=== PATIENT | female | born 1965 | race Caucasian/White ===

== ENCOUNTER → 2019-05-05 14:04 | Outpatient (CLI) | payer OTHER, SELFPAY ==
--- NOTE | 2019-05-05 14:08 | RAD_ITS ---
STUDY: X-RAY - LUMBAR SPINE REASON FOR EXAM: Female, 53 years old. Back pain TECHNIQUE: 5 view(s) of the lumbar spine were obtained. COMPARISON: None FINDINGS: Normal lumbar lordosis. There is no substantial scoliosis. There is a normal alignment of the vertebrae. There is multilevel endplate spondylosis of the lumbar vertebrae. There is multi-level degenerative disc disease with multi-level disc space narrowing. There is no demonstrated fracture. There is no demonstrated spondylolysis of the pars interarticulares. The soft tissue structures are unremarkable. RAD/L/S Spine Min 4 Views IMPRESSION: Degenerative changes of the spine, as detailed above. Electronically Signed: Rito Cardenas MD at 18:50 EDT Tel [phone], Service support ,
== END ==
PROVIDERS: Family Provider Family Medicine; PCP Family Medicine; Referring Provider Family Medicine; Visit Provider Family Medicine
DX: M47.896 Other spondylosis, lumbar region (principal); M51.36 Other intervertebral disc degeneration, lumbar region; M48.061 Spinal stenosis, lumbar region without neurogenic claudication
CPT/HCPCS: 72110

== ENCOUNTER → 2019-06-11 08:11 | Outpatient (CLI) | payer OTHER, SELFPAY ==
--- NOTE | 2019-06-11 08:14 | RAD_ITS ---
STUDY: X-RAY - ESOPHAGUS (BARIUM SWALLOW) WITH FLUOROSCOPY REASON FOR EXAM: Female, 53 years old. Dysphagia for solids. TECHNIQUE: 17 view(s) of the esophagus were obtained following swallowing of barium. FLUOROSCOPY TIME (if supplied): (0:29) minutes/seconds COMPARISON: None. FINDINGS: There is no demonstrated esophageal foreign body. There is no demonstrated stricture or mucosal abnormality. Normal gastroesophageal junction, without a demonstrated hiatal hernia. The patient ingested a 12 mm tablet of barium without any difficulty. Normal visualized aortic arch and descending thoracic aorta. Normal visualized pulmonary parenchyma. Normal visualized osseous structures of the thorax. RAD/Esophagus Only IMPRESSION: Normal plain film x-ray examination (barium swallow) of the esophagus. Electronically Signed: Hussain Cole, at 10:40 EDT , Service support ,
== END ==
PROVIDERS: Family Provider Family Medicine; PCP Family Medicine; Referring Provider Internal Medicine Gastroenterology; Visit Provider Internal Medicine Gastroenterology
DX: R13.10 Dysphagia, unspecified (principal)
CPT/HCPCS: 74220

== ENCOUNTER 2019-06-21 23:01 | Emergency (ER) | payer OTHER, SELFPAY ==
[2019-06-21 23:02] VITALS: BP 152/101; PULSE 95; RESP 15; TEMP 36.7; O2SAT 97; BMI 25.5
--- NOTE | 2019-06-21 23:13 | CT_ITS ---
HISTORY:RT EYE BLURRINESS AND HEADACHE,ELEVATED BP TODAY,PT TAKES NO MEDS FOR BP RT EYE BLURRINESS AND HEADACHE,ELEVATED BP TODAY,PT TAKES NO MEDS FOR BP TECHNIQUE: Multiple axial images were obtained of the brain without intravenous contrast. A radiation dose optimization technique was used for this scan. IV Contrast dosage and agent: None. COMPARISON: January 13, 2014 FINDINGS: # of images incl. paperwork: 241 INFARCT: None HEMORRHAGE: None PARENCHYMAL ATTENUATION:Normal for age MASS: None MIDLINE SHIFT: None BASAL CISTERNS: Patent VENTRICLES: Normal in size and configuration for age PARANASAL SINUSES:Clear MASTOID AIR CELLS: Clear ORBITS:No acute pathology CALVARIUM: No acute pathology OTHER TISSUES: No acute pathology ASPECTS Score for Acute Strokes: 10 CT/Brain/Head without Contrast IMPRESSION: No acute intracranial pathology. If symptoms persist consider mri for further evaluation if clinically indicated. Individualized dose optimization techniques were used for this CT. at 2352 Reported and signed by: Ute Caldwell DO Electronically Signed: Ute Caldwell DO at 23:51 EDT Tel , Service support ,
--- NOTE | 2019-06-21 23:15 | ED.VIS.GEN ---
History of Present Illness Chief Complaint: Hypertension Informant: Patient Onset: Days Context: Gradual Onset Timing: Continuous Current Severity: Moderate Maximum Severity: Moderate Narrative: The patient presents to the emergency department with right eye pain. Patient was contacts. She states she took her contacts out on . She that she begin to notice some pain in her eye. Over the past 2 days, she is had some blurry vision in the. She also describes a mild headache. She states that she was taking her blood pressure was elevated. She is not on any medication for high blood pressure. She denies fever. She denies chills or sweats. She denies any definitive trauma to the eye. She is otherwise been in her normal state of health. Prior similar symptoms: No Recent Illness/Hospitalization: No Past Medical History - Allergies and Home Meds Allergies/Adverse Reactions: Allergies latex Allergy (Verified 06/21/19 23:07) Rash Primary Care Physician: Colin Wang MD [STAFF PHYSICIAN] - (Call Sunday) Prior records reviewed: Yes Past Medical History: - Surgical History: no surgical history Smoking Status: Never smoker Review of Systems General: Denies: Chills, Fever, Sweats Eyes: Reports: Visual changes - right. Denies: Visual changes - bilaterally, Diplopia ENT: Denies: Rhinorrhea, Sore throat Cardiovascular: Denies: Chest pain, Palpitations Respiratory: Denies: Dyspnea, Cough, Dyspnea on exertion Gastrointestinal: Denies: Abdominal pain, Nausea, Vomiting, Diarrhea, Melena, Hematochezia Genitourinary: Denies: Dysuria, Hematuria, Frequency Musculoskeletal: Denies: Back pain, Extremity Pain Skin: Denies: Rash, Wounds Neurological: Denies: Headache, Weakness, Numbness Physical Exam Vital Signs/Narrative: Vital Signs Temp Pulse Resp BP Pulse Ox 06/21/19 23:02 98.0 F 95 15 152/101 H 97 Inital Vital Signs reviewed: Yes General: Well nourished, Well developed, No Acute Distress Head: Normocephalic, Atraumatic Eyes: Perrl, EOMI ENT: Moist mucous membranes, No rhinorrhea Neck: Supple, Nontender Cardiovascular: Regular rate, Regular rhythm, No murmurs Respiratory: No distress, CTA bilaterally, Chest nontender Abdomen: Soft, Nontender, Nondistended, Normal bowel sounds Back: Nontender, Normal Inspection Extremities: Nontender, No edema Skin: Normal color, No rash Neurological: Alert, Oriented x3, Cranial nerves II-XII grossly intact, Normal Strength, Normal Sensation Psychological: Normal affect, Normal Mood Diagnostic/Tx/Re-eval - Medical Decision Making The patient symptoms do seem most consistent with corneal injury. She is a contact lens wearer. She does have a visible area at approximately 2 o'clock position. Tetracaine and fluorescein were instilled into the right eye. Slit-lamp examination was performed. The patient is a 3 mm corneal ulceration at approximately the 2 o'clock position at the edge of the iris. There is no Jomar sign. The anterior chambers deep and quiet. There is no significant flare. I discussed the patient with Dr. Wang, on-call for ophthalmology for close follow-up. Agree with plan for Pseudomonas coverage with eyedrops. Patient will be seen in the office. Impression 1. 3 mm right eye corneal ulceration ED Disposition - Plan for ED Patient: Instructions: Corneal Ulcer Prescriptions: Hydrocodone Bitart/Apap 5-325 [[place] 5MG-325MG] 1 tab PO Q4H PRN PRN 2 Days #10 tab PRN Reason: Pain Prescription Printed Moxifloxacin Ophthalmic [Vigamox Ophth] 3 ml OP Q1H #1 tube Prescription Printed Referrals: Colin Wang MD [STAFF PHYSICIAN] - (Call Sunday)
[2019-06-21] MEDS: Tetracaine 0.5% Ophthalmic Bottle 1 DRP RIGHT EYE (23:20)
[2019-06-22] MEDS: Tobramycin Sulf 0.3% 5ML OPTH.BTL 2 DRP RIGHT EYE (00:04)
[2019-06-22] MEDS: Fluorescein 1 MG STRIP 1 STRIP RIGHT EYE (00:04)
[2019-06-22] MEDS: HYDROcodone Bitartrate/Apap 5/325 Tablet PO (00:04)
[2019-06-22 00:06] VITALS: RESP 14
== END 2019-06-22 00:07 | disposition home or self-care (01) ==
LOC: ED 23:17
PROVIDERS: Emergency Provider Emergency Medicine; Family Provider Family Medicine; PCP Family Medicine
DX: H16.001 Unspecified corneal ulcer, right eye (principal)
CPT/HCPCS: 70450; 99282

== ENCOUNTER → 2019-06-23 11:14 | Outpatient (CLI) | payer OTHER, SELFPAY ==
[2019-06-21 23:02] VITALS: BMI 25.5
[2019-06-23 14:23] LABS: ALB/GLOB Ratio 1.2 RATIO (0.9-2.4); AST(SGOT) 15 U/L (15-37); Alanine Aminotransfer ALT/SGPT 28 U/L (13-56); Albumin, Serum 4.5 g/dL (3.2-5.0); Alkaline Phosphatase 65 U/L (45-117); Anion Gap 8 (5-15); BUN 18 mg/dL (7-18); BUN/Creat Ratio 25.7 RATIO (10-20); Calcium,Total 9.3 mg/dL (8.5-10.1); Chloride 103 mmol/L (98-107); Cholesterol 250 mg/dL (200); EST Glomerular Filtration Rate 94 mL/min (>60); Est Glom Filt Rate - Afr Amer 113 mL/min (>60); Globulin 3.8 g/dL (2.2-4.2); Glucose 87 mg/dL (74-106); High Density Lipoprotein 78 mg/dL; Potassium 4.7 mmol/L (3.5-5.1); Protein, Total 8.3 g/dL (6.4-8.2); Sodium Level 140 mmol/L (136-145); Thyroid Stim Hormone (TSH) 1.67 uIU/mL (0.358-3.74); Triglycerides 82 mg/dL; Very Low Density Lipoprotein 16 mg/dL (5-40)
== END ==
PROVIDERS: Family Provider Family Medicine; PCP Family Medicine; Visit Provider Family Medicine
DX: I10 Essential (primary) hypertension (principal); R68.89 Other general symptoms and signs
CPT/HCPCS: 36415; 80053; 80061; 84443

== ENCOUNTER 2019-07-11 08:30 | Outpatient (RCR) | payer OTHER, SELFPAY ==
--- NOTE | 2019-06-23 10:38 | HP.PTEVAL ---
Patient's Visit Information LOUISE RIOS is a 53 year old F referred to Physical Therapy by Ab Mendosa MD with a diagnosis of . Date of Evaluation: 06/23/19 Physical Therapist: Raymundo Downs PT, Cert MDT, OCS - Visit Plan Frequency: 2x /Week Duration: 4 Weeks - Subjective Findings: This 53 female presents to physical therapy with lumbar pain with radiation left leg. Patient has had leg pain sinece 1985. Pateint has had PT in past. Symptoms worse over several months. Patient pain located left L-S region buttuck -hamstrings to knee. Patient has pins/needles in foot. Aggravating factors bending,lifting,sitting lay on back ,riding a motorcycle . Allevaiting factors avoid postions. Coughing/sneezing -. Bowel/bladder -. Patient able to sleep at night. Patient had accident many years landing on tailbone. Patient pain affects ADLS and job demands/housework tasks. Patient had x--rays DDD. Patient affects QOL .Pain at worse 8/10 worse in back leg. SOCIAL: with 5 kids. VOCATION: [employer] - Pain Left Back Pain Intensity (Out of 10): 5 Pain Intensity Range: 4, 10 Left Lower Extremity Pain Intensity (Out of 10): 0 Pain Intensity Range: 10 - Objective POSTURE: mild foward posture. GAIT: reciprocal pattern. NEURO: denies parathesia/tingling ,except pins /needles in foot reflexes L3-4,L4-5,L5-S1. SYMMTRIES: align. LUMBAR ROM:flexion min loss,extension mod with pain ,side glides min loss. MMT: quads/hams 4/5,hip flexion 4/5,ankle 4/5 - Special Tests L/S Slump test left side: Negative L/S Slump test right side: Negative L/S Left Straight Leg Raise: Negative L/S Right Straight Leg Raise: Negative Lumbar Standing: Flexion - Mechanical Response: No effect Lumbar Standing: Flexion - Symptoms During Testing: No effect Lumbar Standing: Flexion - Symptoms After Testing: No effect Lumbar Standing: Extension - Mechanical Response: No effect Lumbar Standing: Extension - Symptoms During Testing: Increases Lumbar Standing: Extension - Symptoms After Testing: Worse Lumbar Standing: Right Side Glides - Mechanical Response: No effect Lumbar Standing: Right Side [place] - Symptoms During Testing: No effect Lumbar Standing: Right Side [place] - Symptoms After Testing: No effect Lumbar Standing: Left Side [place] - Mechanical Response: No effect Lumbar Standing: Left Side [place] - Symptoms During Testing: No effect Lumbar Standing: Left Side [place] - Symptoms After Testing: No effect Lumbar Lying: Flexion - Mechanical Response: No effect Lumbar Lying: Flexion - Symptoms During Testing: Abolishes Lumbar Lying: Flexion - Symptoms After Testing: Worse Lumbar Lying: Extension - Mechanical Response: No effect Lumbar Lying: Extension - Symptoms During Testing: Increases Lumbar Lying: Extension - Symptoms After Testing: Worse - Goals Goal 1:: Indepensdant with HEP. Goal Time Frame: 2-4 Weeks Goal 2:: Improve posture for ADLS'/Body mecahanics. Goal Time Frame: 2-4 Weeks - Rehabilitation Potential Physical Therapy Diagnosis: This 53 y/o feamle presents with left L-S PAIN along with radicular symptoms left leg. worse with extension ,lay supine or no test movements decrease pain,along with poor lumbar ROM thus benifit from skilled PT Rehabilitation Potential: Good - Anticipated Interventions Patient/Client Instruction: Educate patient on: Condition, Plan of Care For the Purpose of:: To decrease pain, To increase ROM, To improve muscle performance and motor function Thank you for the opportunity to evaluate your patient. For Medicare and Medicare HMO plans, please review the plan of care and approve it. It will need to be FAXED BACK to us at [phone] for Medicare purposes. For Medicare only, by signing this I certify the plan of care. Please let me know if there are questions or concerns regarding this plan of care. Physician Signature: Date:
--- NOTE | 2019-06-23 13:44 | HP.PTEVAL_ITS ---
Patient's Visit Information LOUISE RIOS is a 53 year old F referred to Physical Therapy by Ab Mendosa MD with a diagnosis of . Date of Evaluation: 06/23/19 Physical Therapist: Raymundo Downs PT, Cert MDT, OCS - Visit Plan Frequency: 2x /Week Duration: 4 Weeks - Subjective Findings: This 53 female presents to physical therapy with lumbar pain with radiation left leg. Patient has had leg pain sinece 1985. Pateint has had PT in past. Symptoms worse over several months. Patient pain located left L-S region buttuck -hamstrings to knee. Patient has pins/needles in foot. Aggravating factors bending,lifting,sitting lay on back ,riding a motorcycle . Allevaiting factors avoid postions. Coughing/sneezing -. Bowel/bladder -. Patient able to sleep at night. Patient had accident many years landing on tailbone. Patient pain affects ADLS and job demands/housework tasks. Patient had x--rays DDD. Patient affects QOL .Pain at worse 8/10 worse in back leg. SOCIAL: with 5 kids. VOCATION: [employer] - Pain Left Back Pain Intensity (Out of 10): 5 Pain Intensity Range: 4, 10 Left Lower Extremity Pain Intensity (Out of 10): 0 Pain Intensity Range: 10 - Objective POSTURE: mild foward posture. GAIT: reciprocal pattern. NEURO: denies parathesia/tingling ,except pins /needles in foot reflexes L3-4,L4-5,L5-S1. SYMMTRIES: align. LUMBAR ROM:flexion min loss,extension mod with pain ,side glides min loss. MMT: quads/hams 4/5,hip flexion 4/5,ankle 4/5 - Special Tests L/S Slump test left side: Negative L/S Slump test right side: Negative L/S Left Straight Leg Raise: Negative L/S Right Straight Leg Raise: Negative Lumbar Standing: Flexion - Mechanical Response: No effect Lumbar Standing: Flexion - Symptoms During Testing: No effect Lumbar Standing: Flexion - Symptoms After Testing: No effect Lumbar Standing: Extension - Mechanical Response: No effect Lumbar Standing: Extension - Symptoms During Testing: Increases Lumbar Standing: Extension - Symptoms After Testing: Worse Lumbar Standing: Right Side Glides - Mechanical Response: No effect Lumbar Standing: Right Side [place] - Symptoms During Testing: No effect Lumbar Standing: Right Side [place] - Symptoms After Testing: No effect Lumbar Standing: Left Side [place] - Mechanical Response: No effect Lumbar Standing: Left Side [place] - Symptoms During Testing: No effect Lumbar Standing: Left Side [place] - Symptoms After Testing: No effect Lumbar Lying: Flexion - Mechanical Response: No effect Lumbar Lying: Flexion - Symptoms During Testing: Abolishes Lumbar Lying: Flexion - Symptoms After Testing: Worse Lumbar Lying: Extension - Mechanical Response: No effect Lumbar Lying: Extension - Symptoms During Testing: Increases Lumbar Lying: Extension - Symptoms After Testing: Worse - Goals Goal 1:: Indepensdant with HEP. Goal Time Frame: 2-4 Weeks Goal 2:: Improve posture for ADLS'/Body mecahanics. Goal Time Frame: 2-4 Weeks Goal 3:: Patient to decrease pain by 50% or > and radicular symptoms to impriove function . Goal Time Frame: 2-4 Weeks Goal 4:: Patient to improve lumbar ROM for function of recovery. Goal Time Frame: 2-4 Weeks Goal 5:: Patient to improve Neck owestry score by 5-10 points to improve QOL. Goal Time Frame: 2-4 Weeks - Rehabilitation Potential Physical Therapy Diagnosis: This 53 y/o feamle presents with left L-S PAIN along with radicular symptoms left leg. worse with extension ,lay supine or no test movements decrease pain,along with poor lumbar ROM thus benifit from skilled PT Rehabilitation Potential: Good - Anticipated Interventions Patient/Client Instruction: Educate patient on: Condition, Plan of Care For the Purpose of:: To decrease pain, To increase ROM, To improve muscle performance and motor function, To increase tolerance to activity/condition/position, To improve ability of physical actions for home/community/work/leisure, To improve health of tissue, To decrease soft tissue restriction, To increase flexibility/ROM, To reduce risk of recurrence, To improve ability to perform tasks related to life management Therapeutic Exercise to Include: Strength training, Postural training, Flexibil ty training, Dynamic Lumbar Stabilization, Anthony Exercises For the Purpose of:: To decrease pain, To increase ROM, To improve muscle performance and motor function, To improve ability to perform ADL's, To increase tolerance to activity/condition/position, To improve ability of physical actions for home/community/work/leisure, To improve health of tissue, To decrease soft tissue restriction, To increase flexibility/ROM, To improve ability to perform tasks related to life management TENS: Yes IF ES: Yes Cryotherapy (ice pack, ice massage): Yes Thermo therapy (hot pack): Yes Ultrasound (thermal/non thermal): Yes For the Purpose of:: To decrease pain, To increase ROM, To improve nutrient delivery to tissue, To increase oxygenation perfusion, To improve health of tissue, To decrease soft tissue restriction Thank you for the opportunity to evaluate your patient. For Medicare and Medicare HMO plans, please review the plan of care and approve it. It will need to be FAXED BACK to us at [phone] for Medicare purposes. For Medicare only, by signing this I certify the plan of care. Please let me know if there are questions or concerns regarding this plan of care. Physician Signature: Date:
--- NOTE | 2019-08-25 17:26 | HP.PTDCNRP_ITS ---
HP - Discharge Summary (1) - Patient Information LOUISE RIOS was seen in my office for initial evaluation on 06/23/19. The following Plan of Care was established for this patient: Initial Frequency: 2x /Week Initial Duration: 4 Weeks - Anticipated Interventions Patient/Client Instruction: Educate patient on: Condition, Plan of Care For the Purpose of:: To decrease pain, To increase ROM, To improve muscle performance and motor function, To increase tolerance to activity/condition/position, To improve ability of physical actions for home/community/work/leisure, To improve health of tissue, To decrease soft tiss ue restriction, To increase flexibility/ROM, To reduce risk of recurrence, To improve ability to perform tasks related to life management Therapeutic Exercise to Include: Strength training, Postural training, Flexibilty training, Dynamic Lumbar Stabilization, Anthony Exercises For the Purpose of:: To decrease pain, To increase ROM, To improve muscle performance and motor function, To improve ability to perform ADL's, To increase tolerance to activity/condition/position, To improve ability of physical actions for home/community/work/leisure, To improve health of tissue, To decrease soft tissue restriction, To increase flexibility/ROM, To improve ability to perform tasks related to life management TENS: Yes IF ES: Yes Cryotherapy (ice pack, ice massage): Yes Thermo therapy (hot pack): Yes Ultrasound (thermal/non thermal): Yes For the Purpose of:: To decrease pain, To increase ROM, To improve nutrient delivery to tissue, To increase oxygenation perfusion, To improve health of tissue, To decrease soft tissue restriction This patient was last seen in our office . Pertinent comments regarding their Physical therapy will appear below: Patient was seen for PT for lumbar pain was referred to othopedica consult thus is d/c. At this point I will be discontinuing this patient from physical therapy. I would be happy to see this patient again in the future if found appropriate by the physician. Thank you! Raymundo Downs, PT, Cert MDT, OCS
== END 2019-07-11 19:00 | disposition home or self-care (01) ==
LOC: PT 08:30
PROVIDERS: Family Provider Family Medicine; PCP Family Medicine; Visit Provider Family Medicine
DX: M54.5 Low back pain (principal)
CPT/HCPCS: 97014; 97035; 97110; 97162; G0283

== ENCOUNTER → 2019-08-11 08:59 | Outpatient (CLI) | payer OTHER, SELFPAY ==
--- NOTE | 2019-08-11 09:03 | RAD_ITS ---
STUDY: X-RAY - PELVIS AND BILATERAL HIPS REASON FOR EXAM: Left hip pain. TECHNIQUE: AP view of the pelvis.? 2 views of the right hip, and 2 views of the left hip were obtained. COMPARISON: None. FINDINGS: There are surgical clips in the abdomen and pelvis. Normal bilateral iliac wings, sacroiliac joints and visualized sacrum. Normal bilateral superior and inferior pubic rami. Normal pubic symphysis. Normal bilateral ischial tuberosities. Normal visualized right femoral head. Normal right acetabulum. Normal right hip joint. Normal visualized left femoral head. Normal left acetabulum. There are multiple intra-articular bodies at the medial aspect of the left hip joint, best demonstrated on the frog-leg view. There is mild joint space narrowing at the superior lateral aspect of the left hip joint. 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 Electronically Signed: Mark Barron MD at 13:37 EST Tel , Service support ,
[2019-08-11 10:54] LABS: Anion Gap 5 (5-15); BUN 12 mg/dL (7-18); BUN/Creat Ratio 16.5 RATIO (10-20); Calcium,Total 8.9 mg/dL (8.5-10.1); Chloride 101 mmol/L (98-107); Cholesterol 223 mg/dL (200); Creatinine, Serum 0.73 mg/dL (0.55-1.02); EST Glomerular Filtration Rate 90 mL/min (>60); Est Glom Filt Rate - Afr Amer 109 mL/min (>60); Glucose 81 mg/dL (74-106); High Density Lipoprotein 74 mg/dL; Potassium 3.9 mmol/L (3.5-5.1); Sodium Level 137 mmol/L (136-145); Triglycerides 98 mg/dL; Very Low Density Lipoprotein 20 mg/dL (5-40)
== END ==
PROVIDERS: Family Provider Family Medicine; PCP Family Medicine; Referring Provider Family Medicine; Visit Provider Family Medicine
DX: I10 Essential (primary) hypertension (principal); M25.552 Pain in left hip
CPT/HCPCS: 36415; 73521; 80048; 80061

== ENCOUNTER → 2019-08-29 06:31 | Outpatient (CLI) | payer OTHER, SELFPAY ==
[2019-08-20 15:35] VITALS: BMI 25.5
--- NOTE | 2019-08-29 06:33 | MRI_ITS ---
STUDY: MRI LEFT HIP REASON FOR EXAM: Left hip pain, left sciatic pain, numbness/tingling extending down leg, fall 2 years ago. TECHNIQUE: Standardized fat and water weighted pulse sequences were obtained in all 3 orthogonal planes. COMPARISON: Radiographs 08/11/2019. FINDINGS: There is mild left hip arthrosis with mild chondral thinning (proton density sagittal images 10, 11) and a small subchondral cyst of the superior left acetabulum. There are intra-articular bodies in the left hip joint (proton density sagittal images 9-11), the largest measuring 0.7 cm in AP dimension. There is a tear of the left superior labrum (inversion recovery coronal images 20, 21) and a tear of the left anterosuperior labrum (proton density sagittal image 10). Normal femoral head. Normal femoral neck and intratrochanteric region. Normal gluteus minimus, medius and iliopsoas tendons and distal insertions. There is no trochanteric, iliopsoas or iliopectineal bursitis. Normal superior and inferior pubic rami. Normal pubic symphysis. Normal ischial tuberosity. Normal origin of the hamstring tendons. Normal visualized iliac wing, sacroiliac joint, and sacral ala. There are uterine fibroids (inversion recovery coronal images 11-14). MRI/Lower Ext Joint Only (Routine) IMPRESSION: Mild left hip arthrosis with intra-articular bodies. Left labral tear. No demonstrated trochanteric bursitis. Electronically Signed: Mark Barron MD at 8:22 EST Tel , Service support ,
== END ==
PROVIDERS: Family Provider Family Medicine; PCP Family Medicine; Referring Provider Orthopaedic Surgery; Visit Provider Orthopaedic Surgery
DX: M70.62 Trochanteric bursitis, left hip (principal)
CPT/HCPCS: 73721

== ENCOUNTER 2019-09-15 12:00 | Outpatient (RCR) | payer OTHER, SELFPAY ==
[2019-08-20 15:35] VITALS: BMI 25.5
--- NOTE | 2019-08-26 09:01 | HP.PTEVAL_ITS ---
Patient's Visit Information LOUISE RIOS is a 53 year old F referred to Physical Therapy by Kayden Sanots DO with a diagnosis of LEFT GREATER TRONHANTERIC BURSITIS,SACROLIAC TENDONISTIS,HIP FLEXOR TENDON. Date of Evaluation: 08/26/19 Physical Therapist: Raymundo Downs, PT, Cert MDT, OCS - Visit Plan Frequency: 2x /Week Duration: 4 Weeks Plan: PT INTERVENTIONS MODALITIES ,MANUAL THERAPY HIP/ITBAND FOAM ROLLING,STICK,ROM HIP,STRENGTHENING LEFT HIP CORE STRENGTHENING - Subjective Findings: This 53 y/o female presents to physical therapy with left greater trochanteric bursitis,sacral tendonitis ,hip flexor tendonitis. Patient has had left hip pain several years with symptoms worsening past several months. Patient had PT for lumbar spine. Patient has radicular symptoms sharp to foot intermmitant. Patient return to did x-rays his showed intra-bidies and mild arthrosis. Patient rcommended to Dr Rosales did injections 4-5 cortizone didnt help. Recommended MRI . Patient pain lateral hip greater tronhanteric , hip flexor ,left sacral tendonitis. Aggravating factors hip abduction type movements ,sitting hard bleachers ,getting in/out of car,stairs. . Patient has trauma feel down steps 2 years ago. Alleviating factors nothing. Patient has h/o LBP. C/O parathesia/tinling left leg. Coghing/sneezing-. Patient sleeping okay. Patient pain affects QOL ,job demnads,housework task. VOCATION: [employer]. SOCIAL: 5 children - Pain Left Pain Intensity (Out of 10): 5 Pain Intensity Range: 10 Comment: movement - Objective POSTURE:mild foward posture. GAIT: reciprocal pattern mild foward posture. PALAPTION: tender left greater tronchanter,SI,I-tband. NEURO: c/o parath esia/tingling left leg ,reflexes L3-4,L4-5,L5-S1. PROM: hip flexion 90 degrees pain,hip abd 30 degrees pain ,IR 30 degrees pain. FLEXABILITY: hams mod tight. MMT: quads 3+/5 lateral hip,hams 4-/5,hip flexors/abductors 3+/5. LUMBAR ROM: flexion min loss ,extension min loss pain ,side glides min loss pain left - Special Tests L/S Slump test left side: Positive L/S Slump test right side: Negative L/S Left Straight Leg Raise: Negative L/S Right Straight Leg Raise: Positive Lumbar Standing: Flexion - Mechanical Response: No effect Lumbar Standing: Flexion - Symptoms During Testing: No effect Lumbar Standing: Extension - Mechanical Response: No effect Lumbar Standing: Extension - Symptoms During Testing: Increases Lumbar Standing: Extension - Symptoms After Testing: No worse Comments:: back Lumbar Standing: Right Side Glides - Mechanical Response: No effect Lumbar Standing: Right Side [place] - Symptoms During Testing: No effect Lumbar Standing: Right Side [place] - Symptoms After Testing: No effect Lumbar Standing: Left Side [place] - Mechanical Response: No effect Lumbar Standing: Left Side [place] - Symptoms During Testing: Increases Lumbar Standing: Left Side [place] - Symptoms After Testing: No worse Comments:: left back L Hip Scour: Positive L Hip Quadrant - Intraarticular Pathology: Positive L Hip PANTERA - Intraarticular Pathology: Positive L Hip Resisted Exernal Derotation Test - GT Pain Syndrome: Positive - Goals Goal 1:: Patient to be Independant with HEP Goal Time Frame: 4-6 Weeks Goal 2:: Patient to decrease hip pain by 50% or > to improve function. Goal Time Frame: 4-6 Weeks Goal 3:: Patient to improve hip ROM to WFL to improve function with walking/stairs Goal Time Frame: 4-6 Weeks Goal 4:: Patient increase strength of left hip by 4-/5 to improve function. Goal Time Frame: 4-6 Weeks Goal 5:: Patient to improve LFES score by 10 points or> to improve QOL. Goal Time Frame: 4-6 Weeks - Rehabilitation Potential Physical Therapy Diagnosis: This patient has left hip pain with pain with all planes of motion ,weakness with pain ,tendenerness greater trochanter ,SI impairs ability to abdution,flexion hip with stairs walking . Plan for MRI Rehabilitation Potential: Good - Anticipated Interventions Patient/Client Instruction: Educate patient on: Condition, Plan of Care For the Purpose of:: To decrease pain, To increase ROM, To improve muscle performance and motor function, To improve ability to perform ADL's, To increase tolerance to activity/condition/position, To improve performance and independence with ADL's, To improve ability of physical actions for home/community/work/leisure, To improve gait and locomotor functions, To improve health of tissue, To decrease soft tissue restriction, To increase flexibility/ROM, To improve ability to perform tasks related to life management Therapeutic Exercise to Include: Strength training, Postural training, Flexibilty training, Passive ROM, Active ROM Thank you for the opportunity to evaluate your patient. For Medicare and Medicare HMO plans, please review the plan of care and approve it. It will need to be FAXED BACK to us at [phone] for Medicare purposes. For Medicare only, by signing this I certify the plan of care. Please let me know if there are questions or concerns regarding this plan of care. Physician Signature: Date:
--- NOTE | 2019-09-19 08:43 | HP.PTDCSUM ---
HP - PT D/C Summary It has been my pleasure to treat LOUISE RIOS under orders from Kayden Santos DO, for the diagnosis of LEFT GREATER TRONHANTERIC BURSITIS,SACROLIAC TENDONISTIS,HIP FLEXOR TENDON for a total of 3 visit(s). Discharge Date: Please see the following information for a summary of their discharge status. - Subjective Subjective: Doing better ,just wanted ex's for gym and HEP. I have the tens at home - Pain Left Pain Intensity (Out of 10): 1 - Overall Improvement % Improvement: 50 - Objective Objective/Function: ROM IMPROVING HIP ABD 30#,HIP FLEXION 95. GAIT-NORMAL ANGIE. MMT: QUADS/HAMS 4/5,HIP ABD 3+/5 PAIN - Goals Goal 1:: Patient to be Independant with HEP Goal 2:: Patient to decrease hip pain by 50% or > to improve function. Goal 3:: Patient to improve hip ROM to WFL to improve function with walking/stairs Goal 4:: Patient increase strength of left hip by 4-/5 to improve function. Goal 5:: Patient to improve LFES score by 10 points or> to improve QOL. - Plan Plan: D/C TO HEP AND GYM - D/C Information If there are questions or concerns regarding this patient's physical therapy, please feel free to call me at [phone]. Thank you for the referral of this patient. Sincerely, Raymundo Downs, PT, Cert MDT, OCS
== END 2019-09-15 19:00 | disposition home or self-care (01) ==
LOC: PT 12:00
PROVIDERS: Family Provider Family Medicine; PCP Family Medicine; Referring Provider Orthopaedic Surgery; Visit Provider Orthopaedic Surgery
DX: M70.62 Trochanteric bursitis, left hip (principal); M76.12 Psoas tendinitis, left hip
CPT/HCPCS: 97014; 97110; 97162; 97530; G0283

== ENCOUNTER → 2019-11-05 09:55 | Outpatient (CLI) | payer OTHER, SELFPAY ==
[2019-09-03 14:55] VITALS: BMI 25.5
[2019-11-05 12:58] LABS: Vitamin D,25 Hydroxy 33.9 ng/mL (29.95-100.01)
[2019-11-05 13:04] LABS: Anion Gap 6 (5-15); BUN 14 mg/dL (7-18); BUN/Creat Ratio 17.5 RATIO (10-20); Calcium,Total 9.7 mg/dL (8.5-10.1); Chloride 103 mmol/L (98-107); Cholesterol 257 mg/dL (200); EST Glomerular Filtration Rate 80 mL/min (>60); Est Glom Filt Rate - Afr Amer 97 mL/min (>60); Glucose 88 mg/dL (74-106); High Density Lipoprotein 58 mg/dL; Potassium 3.7 mmol/L (3.5-5.1); Sodium Level 137 mmol/L (136-145); Triglycerides 231 mg/dL; Very Low Density Lipoprotein 46 mg/dL (5-40)
== END ==
PROVIDERS: PCP Family Medicine; Referring Provider Family Medicine; Visit Provider Family Medicine
DX: I10 Essential (primary) hypertension (principal); E55.9 Vitamin D deficiency, unspecified
CPT/HCPCS: 36415; 80048; 80061; 82306

== ENCOUNTER → 2019-11-11 16:10 | Outpatient (CLI) | payer OTHER, SELFPAY ==
[2019-09-03 14:55] VITALS: BMI 25.5
--- NOTE | 2019-11-11 16:13 | BI_ITS ---
MAMMOGRAPHY - BILATERAL SCREENING REASON FOR EXAM: Female, 53 years old. Routine annual screening examination. PERTINENT HISTORY: Previous right breast benign biopsy, 816 TECHNIQUE: Digital bilateral breast deonte (3D mammographic acquisition) in the CC and MLO projections. 2-D mediolateral oblique (MLO) and craniocaudad (CC) views of both breasts were obtained. CAD: Full Field Digital Mammography with Computer Added Detection was performed. COMPARISON: Previous mammogram obtained on 08/28/2017 FINDINGS: Breast Composition: Scattered, with bilateral breast implants There are no dominant masses or suspicious calcifications. No other significant abnormalities are identified. BI/SCREENING MAMM (CAD), BILAT IMPRESSION: Stable bilateral screening mammogram. Yearly follow-up mammogram recommended. (A) ASSESSMENT CATEGORY: BIRADS Category 2: Benign. A letter regarding these results will be sent to the patient by the facility within 30 days. Approximately 10% of breast cancers are not detected by mammography. A normal mammogram should not delay biopsy of a clinically suspicious abnormality. [id number] Electronically Signed: Phill Vesna, at 17:42 EST Tel , Service support ,
== END ==
PROVIDERS: PCP Family Medicine; Referring Provider Family Medicine; Visit Provider Family Medicine
DX: Z12.31 Encounter for screening mammogram for malignant neoplasm of breast (principal)
CPT/HCPCS: 77067

== ENCOUNTER → 2019-11-12 | Outpatient (CLI) | payer OTHER, SELFPAY ==
[2019-09-03 14:55] VITALS: BMI 25.5
[2019-11-17 18:05] LABS: HPV Reflexed? NOT INDICATED
== END | disposition home or self-care (01) ==
LOC: LABSPEC 11-14 10:30
PROVIDERS: PCP Family Medicine; Referring Provider Nurse Practitioner Adult Health; Visit Provider Nurse Practitioner Adult Health
DX: Z01.419 Encounter for gynecological examination (general) (routine) without abnormal findings (principal)
CPT/HCPCS: 88175; G0145

== ENCOUNTER → 2020-03-23 17:42 | Outpatient (CLI) | payer OTHER, SELFPAY ==
[2020-03-15 07:49] VITALS: BMI 25.5
--- NOTE | 2020-03-23 17:43 | MRI_ITS ---
STUDY: MRI LUMBAR SPINE WITHOUT CONTRAST REASON FOR EXAM: Female, 54 years old. ddd, sharp pains in low back and left tailbone when laying flat on back x 5+years TECHNIQUE: Standardized fat and water weighted pulse sequences were obtained in the sagittal and axial planes. COMPARISON: 05/05/2019 FINDINGS: Transitional anatomy is present. For the purposes of the numbering scheme used in this report, partial lumbarization of S1 is assumed. T12-L1: Normal endplates. Normal disc height, hydration and morphology. Normal bilateral facet joints. Normal central canal and bilateral lateral recesses. Normal bilateral intervertebral neural foramina. Normal lumbar lordosis. There is no substantial scoliosis. Normal conus medullaris that terminates at the L1 level. L1-2: Normal endplates. Normal disc height, hydration and morphology. Normal bilateral facet joints. Normal central canal and bilateral lateral recesses. Normal bilateral intervertebral neural foramina. L2-3: Normal endplates. Normal disc height, hydration and morphology. Normal bilateral facet joints. Normal central canal and bilateral lateral recesses. Normal bilateral intervertebral neural foramina. L3-4: Normal endplates. Normal disc height, hydration and morphology. Bilateral facet hypertrophy. Normal central canal and bilateral lateral recesses. Normal bilateral intervertebral neural foramina. L4-5: Bulging annulus and central annular fissure with bilateral facet hypertrophy. Mild bilateral foraminal stenoses. L5-S1: Bulging annulus and bilateral facet hypertrophy without compressive sequelae. 20 mm sacral Tarlov cysts. Normal visualized paraspinous soft tissue structures. MRI/Spine Lumbar (Routine) IMPRESSION: Multilevel degenerative disease as described. No evidence of nerve root impingement. Electronically Signed: Luis Felipe Dalal MD at 19:09 EDT Tel , Service support ,
== END ==
PROVIDERS: PCP Family Medicine; Referring Provider Orthopaedic Surgery; Visit Provider Orthopaedic Surgery
DX: M51.36 Other intervertebral disc degeneration, lumbar region (principal)
CPT/HCPCS: 72148

== ENCOUNTER → 2021-01-14 09:53 | Outpatient (CLI) | payer OTHER, SELFPAY ==
[2020-03-29 07:55] VITALS: BMI 25.5
[2021-01-14 12:46] LABS: Vitamin D,25 Hydroxy 33.7 ng/mL
[2021-01-14 12:53] LABS: Anion Gap 5 (5-15); BUN 12 mg/dL (7-18); BUN/Creat Ratio 17.8 RATIO (10-20); Calcium,Total 9.8 mg/dL (8.5-10.1); Chloride 104 mmol/L (98-107); Creatinine, Serum 0.68 mg/dL (0.55-1.02); EST Glomerular Filtration Rate 97 mL/min (>60); Est Glom Filt Rate - Afr Amer 117 mL/min (>60); Glucose 87 mg/dL (74-106); Potassium 4.3 mmol/L (3.5-5.1); Sodium Level 138 mmol/L (136-145); Thyroid Stim Hormone (TSH) 2.09 uIU/mL (0.358-3.74)
== END ==
PROVIDERS: PCP Family Medicine; Referring Provider Family Medicine; Visit Provider Family Medicine
DX: Z00.00 Encounter for general adult medical examination without abnormal findings (principal)
CPT/HCPCS: 36415; 80048; 82306; 84443

== ENCOUNTER → 2021-08-24 09:48 | Outpatient (CLI) | payer OTHER, SELFPAY ==
--- NOTE | 2021-08-24 09:55 | RAD_ITS ---
STUDY: X-RAY CHEST REASON FOR EXAM: Female, 55 years old. Preoperative evaluation. TECHNIQUE: PA and lateral views of the chest. COMPARISON: None. FINDINGS: The lungs are clear and expanded. There is no demonstrated pleural abnormality. Normal size heart. Calcified right hilar Normal visualized pulmonary arteries. Normal visualized aortic arch and descending thoracic aorta. Normal visualized thoracic spine. Normal visualized ribs, clavicles, and shoulders. There is no demonstrated abnormality of the visualized soft tissue structures of the upper abdomen. RAD/Chest PA and Lateral IMPRESSION: Normal x-ray examination of the chest. Electronically Signed: Hussain Cole MD at 10:39 EST , Service support ,
== END ==
PROVIDERS: PCP Family Medicine
DX: Z01.810 Encounter for preprocedural cardiovascular examination (principal)
CPT/HCPCS: 71046

== ENCOUNTER 2021-09-20 15:56 | Outpatient (CLI) | payer OTHER, SELFPAY | END 2021-09-20 23:59 | disposition short-term general hospital (02) | LOC: LABSPEC 15:57 | PROVIDERS: PCP Family Medicine; Referring Provider Physician Assistant Surgical; Visit Provider Physician Assistant Surgical | DX: Z11.52 Encounter for screening for COVID-19 (principal) | CPT/HCPCS: 87635; U0003; U0005 ==

== ENCOUNTER → 2022-01-24 | Outpatient (CLI) | payer OTHER, SELFPAY ==
[2022-01-24 10:51] LABS: Vitamin D,25 Hydroxy 37.6 ng/mL
[2022-01-24 11:15] LABS: Anion Gap 9 (5-15); BUN 16 mg/dL (7-18); BUN/Creat Ratio 25.4 RATIO (10-20); Calcium,Total 9.2 mg/dL (8.5-10.1); Chloride 102 mmol/L (98-107); Cholesterol 275 mg/dL (200); Creatinine, Serum 0.63 mg/dL (0.55-1.02); EST Glomerular Filtration Rate 105 mL/min (>60); Est Glom Filt Rate - Afr Amer 127 mL/min (>60); Glucose 90 mg/dL (74-106); High Density Lipoprotein 84 mg/dL; Sodium Level 139 mmol/L (136-145); Triglycerides 127 mg/dL; Very Low Density Lipoprotein 25 mg/dL (5-40)
== END | disposition home or self-care (01) ==
LOC: MTLAB 07:55
PROVIDERS: PCP Family Medicine; Referring Provider Family Medicine; Visit Provider Family Medicine
DX: Z00.00 Encounter for general adult medical examination without abnormal findings (principal)
CPT/HCPCS: 36415; 80048; 80061; 82306

== ENCOUNTER → 2022-01-31 | Outpatient (CLI) | payer OTHER, SELFPAY ==
--- NOTE | 2022-01-31 08:30 | BI_ITS ---
MAMMOGRAPHY - BILATERAL SCREENING REASON FOR EXAM: Female, 56 years old. Routine annual screening examination. PERTINENT HISTORY: Grandmother with breast cancer. Prior right excisional breast biopsy. Bilateral breast implants. TECHNIQUE: Digital bilateral breast garry (3D mammographic acquisition) in the CC and MLO projections. 2-D mediolateral oblique (MLO) and craniocaudad (CC) views of both breasts were obtained. CAD: Full Field Digital Mammography with Computer Added Detection was performed. COMPARISON: Comparison is made with prior study dated 11/11/2019 and 08/28/2017. FINDINGS: Breast Composition: There are scattered areas of fibroglandular density. There are no dominant masses or suspicious calcifications. Stable appearance of the bilateral breast implants. No other significant abnormalities are identified. There has been no significant change since the prior study. BI/SCRN MAMM (CAD)W/GARRY BILAT IMPRESSION: Stable bilateral screening mammogram. Yearly follow-up mammogram recommended. (A) ASSESSMENT CATEGORY: BIRADS Category 2: Benign. A letter regarding these results will be sent to the patient by the facility within 30 days. Approximately 10% of breast cancers are not detected by mammography. A normal mammogram should not delay biopsy of a clinically suspicious abnormality. [id number] Electronically Signed: Hussain Cole MD at 10:05 EDT ,
== END | disposition home or self-care (01) ==
LOC: OPBI 08:27
PROVIDERS: PCP Family Medicine; Visit Provider Family Medicine
DX: Z12.31 Encounter for screening mammogram for malignant neoplasm of breast (principal)
CPT/HCPCS: 77063; 77067

== ENCOUNTER → 2022-05-30 | Outpatient (CLI) | payer OTHER, SELFPAY ==
--- NOTE | 2022-05-30 15:42 | RAD_ITS ---
STUDY: X-RAY - PELVIS AND RIGHT HIP REASON FOR EXAM: Right hip pain. TECHNIQUE: 2 views of the pelvis and hip. COMPARISON: Radiographs 08/11/2019. FINDINGS: There are surgical clips in the abdomen and pelvis. Normal bilateral iliac wings, sacroiliac joints and visualized sacrum. Normal bilateral superior and inferior pubic rami. Normal pubic symphysis. Normal bilateral ischial tuberosities. Normal visualized right femoral head. Normal right acetabulum. Normal right hip joint. RAD/HIP, UNI W/ Pelvis 2-3 Views IMPRESSION: Unremarkable x-ray examination of the right hip. Electronically Signed: Mark Barron MD at 12:14 EDT ,
== END | disposition home or self-care (01) ==
LOC: MTRAD 15:40
PROVIDERS: PCP Family Medicine; Referring Provider Nurse Practitioner Family; Visit Provider Nurse Practitioner Family
DX: M25.551 Pain in right hip (principal)
CPT/HCPCS: 73502

== ENCOUNTER → 2022-11-28 | Outpatient (CLI) | payer OTHER, SELFPAY ==
[2022-11-28 10:55] LABS: Anion Gap 8 (5-15); BUN 15 mg/dL (7-18); BUN/Creat Ratio 20.1 RATIO (10-20); Calcium,Total 9.9 mg/dL (8.5-10.1); Chloride 101 mmol/L (98-107); Cholesterol 205 mg/dL (200); Creatinine, Serum 0.75 mg/dL (0.55-1.02); EST Glomerular Filtration Rate 86 mL/min (>60); Est Glom Filt Rate - Afr Amer 104 mL/min (>60); Follicle Stimulating Hormone 61.8 mIU/mL; Glucose 100 mg/dL (74-106); High Density Lipoprotein 74 mg/dL; Luteinizing Hormone 24.8 mIU/mL; Potassium 3.8 mmol/L (3.5-5.1); Sodium Level 137 mmol/L (136-145); Thyroid Stim Hormone (TSH) 2.44 uIU/mL (0.358-3.74); Triglycerides 151 mg/dL; Very Low Density Lipoprotein 30 mg/dL (5-40)
[2022-12-03 08:29] LABS: Estrogen, Total, Serum 57 pg/mL (40-244)
== END | disposition home or self-care (01) ==
LOC: MTLAB 08:37
PROVIDERS: PCP Family Medicine; Referring Provider Family Medicine; Visit Provider Family Medicine
DX: I10 Essential (primary) hypertension (principal); R63.5 Abnormal weight gain; N95.1 Menopausal and female climacteric states
CPT/HCPCS: 36415; 80048; 80061; 82672; 83001; 83002; 84443

== ENCOUNTER → 2022-12-25 | Outpatient (CLI) | payer OTHER, SELFPAY ==
--- NOTE | 2022-12-25 16:37 | RAD_ITS ---
STUDY: X-RAY - PELVIS AND RIGHT HIP REASON FOR EXAM: Female, 57 years old. PAIN TECHNIQUE: 3 views of the pelvis and hip. COMPARISON: None. FINDINGS: There is a non-specific bowel gas pattern. Normal visualized soft tissue structures. Normal bilateral iliac wings, sacroiliac joints and visualized sacrum. Normal bilateral superior and inferior pubic rami. Normal pubic symphysis. Normal bilateral ischial tuberosities. Normal visualized femoral head. Normal acetabulum. Normal hip joint. Replaced left hip joint demonstrates anatomic alignment. No plain film evidence of hardware complication. RAD/HIP, UNI W/ Pelvis 2-3 Views IMPRESSION: No fracture or joint space abnormality Electronically Signed: Sabas Reis MD at 15:40 EDT ,
[2022-12-25 18:10] LABS: CRP < 2.90 mg/L (0.0-3.0); Rheumatoid Factor < 10.0 IU/mL (<15)
[2022-12-25 18:20] LABS: Erythrocyte Sedimentation Rate 18 mm/hr (0-30)
[2022-12-27 11:10] LABS: Lyme Scn Total Ab w/Rflx Negative (Negative)
[2022-12-27 18:31] LABS: ANTINUCLEAR ANTIBODIES DIRECT Positive (Negative)
== END | disposition home or self-care (01) ==
PROVIDERS: PCP Family Medicine; Referring Provider Family Medicine; Visit Provider Family Medicine
DX: M25.551 Pain in right hip (principal)
CPT/HCPCS: 36415; 73502; 85652; 86038; 86140; 86431; 86618

== ENCOUNTER → 2024-06-19 | Outpatient (CLI) | payer OTHER, SELFPAY ==
--- NOTE | 2024-06-19 09:23 | BI_ITS ---
MAMMOGRAPHY - BILATERAL SCREENING REASON FOR EXAM: Female, 58 years old. Routine annual screening examination. PERTINENT HISTORY: Grandmother with breast cancer. Bilateral breast implants. Prior right excisional breast biopsy. TECHNIQUE: Digital bilateral breast garry (3D mammographic acquisition) in the CC and MLO projections. 2-D mediolateral oblique (MLO) and craniocaudad (CC) views of both breasts were obtained. CAD: Full Field Digital Mammography with Computer Added Detection was performed. COMPARISON: Comparison is made with prior study dated January 31, 2022. FINDINGS: Breast Composition: There are scattered areas of fibroglandular density. There is a 2.4 cm x 2.3 cm spiculated nodule in the deep upper lateral aspect of the left breast. A neoplastic process should be ruled out. Biopsy recommended. Stable appearance of the bilateral breast implants. No other significant abnormalities are identified. BI/SCRN MAMM (CAD)W/GARRY BILAT IMPRESSION: 2.4 cm x 2.3 cm spiculated nodule in the deep upper lateral aspect of the left breast. Biopsy recommended. ASSESSMENT CATEGORY: BIRADS Category 4: Suspicious - Biopsy Should Be Considered. A letter regarding these results will be sent to the patient by the facility within 30 days. Approximately 10% of breast cancers are not detected by mammography. A normal mammogram should not delay biopsy of a clinically suspicious abnormality. [id number] Electronically Signed: Hussain Cole MD at 10:44 EDT ,
--- NOTE | 2024-06-19 09:24 | BD_ITS ---
STUDY: DUAL ENERGY X-RAY ABSORPTIOMETRY / DXA REASON FOR EXAM: Female, 58 years old. Z780 TECHNIQUE: Bone Mineral Density (BMD) measurements of lumbar spine and left forearm were obtained. COMPARISON: None. FINDINGS: Lumbar Spine (L1-L4): g/cm2 (0.912) / T-score (-1.2) / Z-score (-0.1) Findings are suggestive of osteopenia with a low fracture risk. Left Forearm: g/cm2 (0.632) / T-score (1.0) / Z-score (2.) BD/Dexa Bone Density Study IMPRESSION: The patient is considered osteopenic as outlined below according to World [employer] Organization (WHO) criteria with a low fracture risk. Reference Information: The T-score is the number of standard deviations above or below the standard which is normal for young adults at their peak bone mineral density. The World Health Organization (WHO) interprets the T-scores as follows: Above -1 Normal bone density Between -1 and -2.5 Osteopenia Equal to / or below -2.5 Osteoporosis As a practical clinical guideline, osteopenia may be graded as follows: Mild -1 through -1.5 Moderate -1.6 through -2.0 Severe -2.1 through -2.4 The Z-score is the number of standard deviations above or below age-matched controls. A Z-score of less than -1.5 would be considered abnormal. References: 1. NIH Osteoporosis and Related Bone Diseases www osteo.org 2. International Society for Clinical Densitometry www iscd.org 3. National Osteoporosis Foundation www nof.org Electronically Signed: Hussain Cole MD at 12:40 EDT ,
== END | disposition home or self-care (01) ==
LOC: OPBD 09:20
PROVIDERS: PCP Family Medicine
DX: Z12.31 Encounter for screening mammogram for malignant neoplasm of breast (principal); Z78.0 Asymptomatic menopausal state
CPT/HCPCS: 77063; 77067; 77080

== ENCOUNTER → 2024-06-26 | Outpatient (CLI) | payer OTHER, SELFPAY ==
--- NOTE | 2024-06-26 14:37 | US_ITS ---
STUDY: ULTRASOUND BREAST - LEFT REASON FOR EXAM: Female, 58 years old. Abnormal screening mammogram. TECHNIQUE: Axial and longitudinal images of the LEFT breast were performed with a high resolution ultrasound transducer. # OF IMAGES: 8 COMPARISON: Comparison is made with prior examination dated June 19, 2024. FINDINGS: LEFT Breast: The mammographic abnormality corresponds to a 1.6 cm x 2.5 cm x 1.6 cm irregular hypoechoic nodule with increased vascularity. The abnormality is taller than it is wide. A neoplastic process should be ruled out. This is located at the 3:00 position of the breast at 12 cm from the nipple. Biopsy recommended. US/Breast Limited Unilateral IMPRESSION: The mammographic and laterally corresponds to 1.6 cm x 2.5 cm x 1.6 cm irregular hypoechoic nodule with increased vascularity at the 3:00 position of the breast at 12 cm from the nipple. Biopsy recommended. ASSESSMENT CATEGORY: BIRADS Category 5: Highly Suggestive of Malignancy - Appropriate Action Should Be Taken. A letter regarding these results will be sent to the patient by the facility within 30 days. Electronically Signed: Hussain Cole MD at 8:43 EDT ,
== END | disposition home or self-care (01) ==
LOC: OPUS 14:33
PROVIDERS: PCP Family Medicine; Referring Provider Family Medicine; Visit Provider Family Medicine
DX: N63.20 Unspecified lump in the left breast, unspecified quadrant (principal)
CPT/HCPCS: 76642

== ENCOUNTER → 2024-06-27 | Outpatient (CLI) | payer OTHER, SELFPAY ==
--- NOTE | 2024-06-27 | BRBX_PTH ---
PATIENT: LOUISE RIOS LOC: [facility] U#:[id number] AGE/SX: 58/F ROOM: RE06/27/[address]: Dr. Sofiya Fleming MD : 1965 BED: DIS: 06/27/2024 SPEC #: [id number] RECD: 06/27/24 11:52 STATUS: MIRIAM REQ #: [id number] ROLY: 06/27/24 00:[address]: Sofiya Fleming DEPT: SURGICAL PATHOLOGY RECD BY: Chicho Sinclair ENTERED: 06/27/24 13:36 SP TYPE: BREAST BX OTHR DR: Dr. Ab Mendosa MD Tissues: Left breast, NOS Procedures: Surgery Specimen Level IV HEADER OPERATION: Left breast mass biopsy PRE-OP DIAGNOSIS: Abnormal mammogram TISSUE SUBMITTED: Left breast mass tissue Ischemic Time: 1 minute Fixation Time: 56 hours MICROSCOPIC DIAGNOSIS Left breast mass, core biopsy: Invasive lobular carcinoma. See cancer summary in the comment section. 07/01/2024 COMMENT INVASIVE BREAST CANCER SUMMARY: Procedure: Needle core biopsy Specimen Laterality: Left Tumor site: Not specified Histologic type: Invasive lobular carcinoma Provisional Histologic grade: Glandular/tubule Differentiation Score: 3 Nuclear Pleomorphism Score:1 Mitotic Rate Score:1 Overall grade: Grade 1 (score of 5) Tumor Size ( greatest dimension): 1.1cm in greatest length Ductal Carcinoma Insitu: Not identified Angiolymphatic Invasion: Microcalcifications: Not identified Additional Findings: None Breast Marker Study: [id number] ER: positive (>95%, strong intensity) WA: positive (variable, 0-15%, moderate intensity) Her2: negative (1+) Ki67: positive, low ~20% The above summary is in compliance with [employer] (CAP) Cancer Protocols Checklist and [place] Joint Committee on Cancer (AJCC), Staging Manual, 8th Ed. Immunohistochemistry ([id number]) supports the above diagnosis. Case has been reviewed in consultation with Dr. Mendez who concurs with the above diagnosis. IDC:AM MICROSCOPIC DESCRIPTION Slides are reviewed. GROSS DESCRIPTION Received in fixative is one container labeled with the patient's name and designated Left breast tissue. The specimen consists of multiple elongated fragments of acuña tissue measuring in aggregate 1.5 x 0.2 x 0.1cm. The specimen is submitted in its entirety in one cassette. AM. 06/27/2024 TC:0 [facility]:[id number] ADDENDUM ADDENDUM ADDENDUM ADDENDUM ADDENDUM ADDENDUM ADDENDUM ADDENDUM ADDENDUM ADDENDUM ADDENDUM ADDENDUM ADDENDUM ADDENDUM ADDENDUM ADDENDUM ADDENDUM ADDENDUM 01/06/2025 10:37 ADDENDUM 01/06/2025 10:37 ADDENDUM 01/06/2025 10:37 ADDENDUM 01/06/2025 10:37 ADDENDUM 01/06/2025 10:37 This addendum is added to incorporate an outside pathology consultation report. The case was examined at [facility] by Dr. Rhodes(#[id number]) and the following diagnosis was rendered. A. Left breast mass, core biopsy: Invasive lobular carcinoma, grade 1 (score: tubule 3, nuclear 1, mitotic 1), 1.1cm in greatest length. Manual immunohistochemical quantification using stains performed at [facility] (outside block 1): Estrogen Receptor: Positive (99%, strong intensity) Progesterone Receptor: Positive (3%, strong intensity) HER2: Negative (score 1+) Please see complete above mentioned consultation report in EMR
--- NOTE | 2024-06-27 | IMM_PTH ---
PATIENT: LOUISE RIOS LOC: [facility] U#:[id number] AGE/SX: 58/F ROOM: RE06/27/[address]: Dr. Sofiya Fleming MD : 1965 BED: DIS: 06/27/2024 SPEC #: [id number] RECD: 06/30/24 10:33 STATUS: MIRIAM REQ #: [id number] ROLY: 06/27/24 00:[address]: Sofiya Fleming DEPT: IMMUNOHISTOCHEMISTRY RECD BY: Noble Carlos ENTERED: 06/30/24 10:34 SP TYPE: IMMUNO OTHR DR: Dr. Ab Mendosa MD Tissues: Left breast, NOS Procedures: CALPONIN-1 (add) CK5-6 (add) CK8 (add) E-CAD (add) HER2 ANGELA (add) KI-67 (add) P53 (add) IA (add) P40 (add) ER (initial) PHYSICIAN & INSTITUTION [address] [address] SPECIMEN INFORMATION: Tissue Source: Left breast mass tissue Clinical Info: Abnormal mammogram Specimen Number: [id number] CPT code: 27501,44410m5,69118t2 METHODOLOGY: Deparaffinized sections of prefer/formalin-fixed tissue or PAP/DQ stained slides are incubated with monoclonal/polyclonal antibodies/oligonucleotide probes. Localization is made via biotin free immunoperoxidase method. Appropriate controls are performed and reacted as expected. Results on target cell population are indicated in the following table: RESULTS: ANTIBODY / CLONE RESULT E-Cad (ECH-6) negative CK8 ([id number]) positive Calponin-1 (IN709S) negative CK5-6 (D5 & 1684) negative P40 (BC28) negative P53 (DO-7) negative (null pattern) Ki-67 (30-9) positive, low ~20% MORPHOMETRIC ANALYSIS ER (clone 6F11) >95%, strong intensity IA (clone 16/1E2) variable, 0 to 15%, moderate intensity Her-2Neu (clone CB11) 1+ The prognostic test for HER2 is performed on formalin-fixed paraffin embedded tissue. A 3+ (positive) staining pattern is defined as intense, homogeneous, complete, circumferential membranous staining in >10% of contiguous tumor cells. A similar weak (2+) staining pattern is interpreted as equivocal. ROXANNE follow-up testing is recommended for all equivocal cases. Positivity/negativity for ER/IA is reported if > or < 1% of the tumor cells are immuno- reactive, respectively. The ASCO/CAP criteria is used for scoring. Reference: Journal of Clinical Oncology, 2013; 31:7996-9734 & 2010; 16:5527-8817. Ischemic time: Less than one hour. Duration of fixation: 56 Hrs; Sample Adequate: Yes. These assays have not been validated on decalcified tissues. Results should be interpreted with caution given the likelihood of false negativity on decalcified specimens or fixation greater than 72 hours. Alternative testing methods (FISH/dualISH for Her2; gene expression for ER) are recommended, if applicable. Please notify the laboratory if additional testing is required. These tests were developed and their performance characteristics determined by [facility]. They may not have been cleared or approved by the U.S. Food and Drug Administration. The FDA has determined that such clearance or approval is not necessary. The above immunohistochemical/dualISH markers are ordered and reviewed by the Pathologist. INTERPRETATION: Left breast mass, core biopsy: Invasive lobular carcinoma. Positive for estrogen receptors (favorable prognostic indicator). Positive for progesterone receptors (favorable prognostic indicator). Negative for overexpression of YMD2zoz. SJ.mr 07/01/2024
== END | disposition home or self-care (01) ==
LOC: LABSPEC 12:21
PROVIDERS: PCP Family Medicine; Referring Provider Surgery; Visit Provider Surgery
DX: R92.8 Other abnormal and inconclusive findings on diagnostic imaging of breast (principal)
CPT/HCPCS: 88305; 88341; 88342

== ENCOUNTER → 2024-07-04 | Outpatient (CLI) | payer OTHER, SELFPAY ==
--- NOTE | 2024-07-04 12:34 | MRI_ITS ---
STUDY: BILATERAL BREAST MR WITHOUT AND WITH CONTRAST REASON FOR EXAM: Female, 58 years old. Left breast malignancy. Patient has implants. TECHNIQUE: Multi-sequence multi-echo imaging of both breasts was performed with a dedicated breast coil. T1-weighted and T2-weighted images were performed before the administration of contrast. T1-weighted images were also performed after the intravenous administration of 17 cc of Clariscan contrast. COMPARISON: Left breast ultrasound dated June 26, 2024 and bilateral mammogram dated June 19, 2024. FINDINGS: RIGHT BREAST: Scattered fibroglandular densities with minimal background enhancement. Subpectoral implant with no complicating features. No abnormal enhancing masses or areas of non-mass enhancement in the right breast. LEFT BREAST: Scattered fibroglandular densities with minimal background enhancement. Subpectoral implant with no complications identified. At the 3:00 position of the left breast there is an irregular enhancing mass measuring 4 cm x 1.8 cm x 2 cm adjacent to the posterior and lateral aspect of the implant. This represents the index lesion which was seen on mammogram and ultrasound. Enlarged left axillary lymph noted measuring approximately 2.4 cm in diameter. No abnormality in the visualized regions of the chest or liver. MRI/Breast Bilateral W/O and W IMPRESSION: Left breast mass measuring 4 cm x 1.8 cm x 2 cm representing the index lesion. Enlarged left axillary lymph node measuring 2.4 cm in diameter.. CATEGORY: BIRADS Category 6: Known Biopsy-Proven Malignancy - Appropriate Action Should Be Taken. A letter regarding these results will be sent to the patient by the facility within 30 days. Electronically Signed: Alin Duenas MD at 8:22 EDT ,
== END | disposition home or self-care (01) ==
PROVIDERS: PCP Family Medicine; Referring Provider Physician Assistant; Visit Provider Physician Assistant
DX: C50.919 Malignant neoplasm of unspecified site of unspecified female breast (principal)
CPT/HCPCS: 77049; A9575; A4216; C8908